=== PATIENT | male | born 1970 | race African-American/Black ===

== ENCOUNTER 2016-07-27 16:25 | Emergency (ER) ==
[2016-07-27] MEDS ORDERED: NITROGLYCERIN SL PRN (16:31)
[2016-07-27] MEDS ORDERED: ASPIRIN PO STA (16:31)
[2016-07-27] MEDS ORDERED: HEPARIN IV ONE (16:36)
--- NOTE | 2016-07-27 16:37 | PROVIDER DOCUMENTATION ---
[id number] Abuse/Overdose - General Source: patient, EMS, other ([facility]) - History of Present Illness-Drug/Alcohol This episode of drinking or use began:: just prior to arrival Severity: reports: severe Any injuries associated with this episode of intoxication?: No Similar Symptoms Previously?: No Recently seen or treated by another doctor?: No - Substance Abuse Substance Use: reports: other (spice) <Jonelle Stark - Last Filed: 07/27/16 16:40> <Julian Goins - Last Filed: 07/27/16 16:51> - General Chief Complaint: Overdose Stated Complaint: spice overdose Time Seen by Provider: 07/27/16 16:26 Allergies/Adverse Reactions: Allergies Allergy/AdvReac Type Severity Reaction Status Date / Time No Known Allergies Allergy Verified 07/27/16 16:27 - History of Present Illness-Drug/Alcohol Nature of Presenting Problem: Pt came in by ems with [facility] with cc of spice overdose. Pt reports he smoked 3 cigarettes and reports it had spice in it. EMS reports BP was 70/40 put IV in left arm on arrival pt started having vomiting and is in and out of consciousness. Pt complains of chest pain. (Jonelle Stark) Review of Systems - Adult - REVIEW OF SYSTEMS - ADULT Constitutional: denies: chills, fever, fatique Eyes: reports: no symptoms reported Ears, Nose, Mouth & Throat: denies: ear pain, sinus problem, throat pain Cardiovascular: reports: chest pain. denies: irregular heart rate, orthopnea, syncope Respiratory: reports: no symptoms reported Gastrointestinal: reports: no symptoms reported Genitourinary: reports: no symptoms reported Musculoskeletal: reports: no symptoms reported Integumentary: reports: no symptoms reported Neurological: reports: no symptoms reported Psychiatric: reports: alcohol/drug dependence. denies: anti-depressant use, insomnia, panic attacks Endocrine: reports: no symptoms reported Hematologic/Lymphatic: reports: no symptoms reported Allergic/Immunologic: reports: no symptoms reported All Other Systems: Reviewed and Negative <Jonelle Stark - Last Filed: 07/27/16 16:40> Past History - Adult - PAST MEDICAL HISTORY-ADULT Review of Records: reports: Nursing Assessment Review, Medications Reviewed Major Childhood Illnesses: reports: denies history - IMMUNIZATION STATUS Childhood Immunizations: See Nurse Assessment Flu Vaccine: See Nurse Assessment <Jonelle Stark - Last Filed: 07/27/16 16:40> Physical Exam-General - PHYSICAL EXAM-ADULT Initial Vital Signs Reviewed: Yes - CONSTITUTIONAL General Appearance: alert, moderate distress, other (soloment). negative: appears well - EYES Eyes: PERRL/EOMI - RESPIRATORY Respiratory: lungs clear, normal breath sounds, no pleuratic chest pain, no respiratory distress, no accessory muscle use - CARDIOVASCULAR Cardiovascular: regular rate, rhythm - GASTROINTESTINAL (ABDOMEN) Abdominal Exam: non tender, soft, no organomegaly, no pulsatile mass - MUSCULOSKELETAL Extremity: no pedal edema - SKIN Integumentary: warm/dry, diaphoresis - PSYCHIATRIC Psych/Mental Status: negative: normal mood/affect, oriented x 3 <Jonelle Stark - Last Filed: 07/27/16 16:40> Progress - EKG 1 Time of EKG reading by physician:: 16:27 EKG Read and Signed by:: Julian Goins EKG Interpretation (*Must complete 3 of following elements*): Abnormal (St elevation consider inferior injury or acute infarct; ACUTE VA/STEMI consider right ventricular involvement in acute inferior infarct) Rate: 71 Rhythm: nsr ST Wave: elevated - CONSULTS/PCP/HOSPITALIST Notification #1 *Consult/PCP/Hospitalist*: Time Discussed: 16:38 (Accepting physician at [place]) <Abdifatah Starksandra - Last Filed: 07/27/16 16:40> <Julian Goins - Last Filed: 07/27/16 16:51> - PLAN OF CARE/RESULTS Progress/Plan/Lab Results: Orders Category Date Time Status Cardiac Monitoring DIRECTED Care 07/27/16 16:32 Active Saline Loc NOW Care 07/27/16 16:32 Active CHEST-2 VIEWS [RAD] Stat Exams 07/27/16 16:32 Ordered ALCOHOL BLOOD Stat Lab 07/27/16 16:31 Uncollected CBC WITH ELECTRONIC DIFF [HEME] Stat Lab 07/27/16 16:32 Uncollected CK PROFILE [SP CHEM] Stat Lab 07/27/16 16:32 Uncollected COMPREHENSIVE METABOLIC PANEL [CHEM] Stat Lab 07/27/16 16:32 Uncollected D-DIMER [CHEM] Stat Lab 07/27/16 16:32 Uncollected MAGNESIUM [CHEM] Stat Lab 07/27/16 16:32 Uncollected PRO B-NATRIURETIC PEPTIDE Stat Lab 07/27/16 16:32 Uncollected PROTIME WITH INR [COAG] Stat Lab 07/27/16 16:32 Uncollected PTT [COAG] Stat Lab 07/27/16 16:32 Uncollected TROPONIN T Stat Lab 07/27/16 16:32 Uncollected URINE DRUG SCREEN Stat Lab 07/27/16 16:31 Uncollected Aspirin Med 07/27/16 16:31 Discontinued 325 mg PO STAT STA Nitroglycerin Sl [Nitroglycerin] Med 07/27/16 16:31 Active 0.4 mg SL Q5M PRN PRN EKG [EKG] Stat Ther 07/27/16 16:32 Ordered (Jonelle Stark) Departure - Departure Time of Disposition Order: 16:37 Certified Medical Emergency: Emergent <Jonelle Stark - Last Filed: 07/27/16 16:40> - Departure Time of Disposition Order: 16:51 Certified Medical Emergency: Emergent <Julian Goins - Last Filed: 07/27/16 16:51> - Departure DIAGNOSIS: STEMI (ST elevation myocardial infarction) Qualifiers: Involved coronary artery: unspecified coronary artery Qualified Code(s): I21.3 - ST elevation (STEMI) myocardial infarction of unspecified site Disposition: [facility] 02 Condition: Stable Attestation - Scribe Verification/Attestation Scribe:: Jonelle Stark Acting as Scribe for:: Julian Goins Scribe documention review:: This chart was documented by a scribe and accurately reflects the service the provider performed and the decisions made by the provider. <Jonelle Stark - Last Filed: 07/27/16 16:40> Physician Attestation - Physician Attestation I, the provider, attest to the following statement:: Julian Goins Physician documentation Attestation:: This documentation recorded by the scribe accurately reflects the service I personally performed and the decisions made by me. <Julian Goins - Last Filed: 07/27/16 16:51>
[2016-07-27 16:45] VITALS: BP 126/93
[2016-07-27 16:50] LABS: MANUAL DIFF NEEDED? NO
[2016-07-27] MEDS ORDERED: NS 1,000 ML IV ONE (16:50)
[2016-07-27] MEDS ORDERED: MORPHINE IV ONE (16:50)
[2016-07-27] MEDS ORDERED: ZOFRAN IV ONE (16:50)
[2016-07-27] MEDS ORDERED: MORPHINE ONE (16:50)
[2016-07-27] MEDS ORDERED: ZOFRAN ONE (16:50)
[2016-07-27 16:55] LABS: BASO% 0.2 % (0.0-0.8); EOS# 0.11 X1000 (0.0-0.7); EOS% 0.8 % (0.0-10.0); HEMATOCRIT 40.4 % (42.0-52.0); HEMOGLOBIN 13.9 g/dL (14.0-18.0); IMM GRAN# 0.03 X1000 (0.0-0.04); IMM GRAN% 0.2 % (0.0-0.5); LYMPH# 2.97 X1000 (1.2-3.4); LYMPH% 21.3 % (20.5-51.1); MCH 29.8 PG (27-31); MCHC 34.4 g/dL (33-37); MCV 86.7 FL (81-99); MONO# 0.75 X1000 (0.11-0.59); MONO% 5.4 % (1.7-9.3); MPV 11.6 FL (7.4-10.4); NEUT% 72.1 % (42.2-75.2); PLT 220 X1000 (130-400); RBC 4.66 XMIL (4.7-6.1)
[2016-07-27 17:09] LABS: ALBUMIN 3.9 g/dL (3.5-5.0); CALCIUM 8.7 mg/dL (8.8-10.2); MAGNESIUM 1.9 mg/dL (1.5-2.7); POTASSIUM 3.5 mmol/L (3.5-5.1); TOTAL BILIRUBIN 0.3 mg/dL (0.20-1.00); TOTAL PROTEIN 7.2 g/dL (6.3-8.3)
[2016-07-27 17:11] LABS: PTT 22.6 Seconds (22.0-36.0)
[2016-07-27 17:12] LABS: INR 1.04; PROTIME 10.6 Seconds (9.2-11.7)
--- NOTE | 2016-07-27 18:03 | Diag Imaging Result Document ---
PROCEDURE NAME: CHEST-1 VIEW - 07/27/2016 CHEST SINGLE VIEW: FINDINGS: The lungs are well expanded. The heart is not enlarged. The vessels are not distended. No pneumonia. No pleural effusions identified. IMPRESSION: Negative chest.
--- NOTE | 2016-07-30 10:57 | EKG Report ---
Test Performed on : 07/27/2016 4:27:00 PM Test Reason : Chest Pain Blood Pressure : / mmHG Vent. Rate : 071 BPM Atrial Rate : 071 BPM P-R Int : 186 ms QRS Dur : 090 ms QT Int : 414 ms P-R-T Axes : 061 030 097 degrees QTc Int : 449 ms Normal sinus rhythm. ST elevation, consider inferior injury or acute infarct ACUTE ID / STEMI Consider right ventricular involvement in acute inferior infarct Abnormal ECG No previous ECGs available Unconfirmed Result
== END 2016-07-27 16:50 | disposition short-term general hospital (02) ==
LOC: EDBD → ED 16:25
DX: I21.3 ST elevation (STEMI) myocardial infarction of unspecified site (principal); R94.31 Abnormal electrocardiogram [ECG] [EKG]; R07.9 Chest pain, unspecified; R11.10 Vomiting, unspecified; R40.0 Somnolence
CPT/HCPCS: 71010; 80053; 82550; 82948; 83735; 83880; 84484; 85025; 85379; 85610; 85730; 93005; 96374; G0480; J1644; J2270; J2405; 80320